=== PATIENT | female | born 1970 | race Asian ===

== ENCOUNTER 2018-07-27 19:13 | Emergency (ER) | payer BC ==
[~2018-07-27] VITALS: Ht 160 cm; Wt 61.2 kg
[2018-07-27 21:15] VITALS: BP 100/53
== END 2018-07-27 21:15 | disposition home or self-care (01) ==
LOC: ED 19:13
DX: S16.1XXA Strain of muscle, fascia and tendon at neck level, initial encounter (principal); R51 Headache; Z98.890 Other specified postprocedural states; V49.9XXA Car occupant (driver) (passenger) injured in unspecified traffic accident, initial encounter; Y93.I9 Activity, other involving external motion; Y92.413 State road as the place of occurrence of the external cause; Y99.8 Other external cause status